=== PATIENT | male | born 1965 | race Caucasian/White ===

== ENCOUNTER 2016-07-17 03:20 | Emergency (ER) ==
[2016-07-17 03:29] VITALS: BP 147/70
[2016-07-17] MEDS ORDERED: NORFLEX IM ONE (03:45)
--- NOTE | 2016-07-17 03:51 | PROVIDER DOCUMENTATION ---
HPI-General Adult - General Chief Complaint: Generalized Pain Stated Complaint: CP-SI-BACK PAIN Time Seen by Provider: 07/17/16 03:42 Source: patient, EMS Allergies/Adverse Reactions: Patient Allergies Allergy/AdvReac Type Severity Reaction Status Date / Time tramadol Allergy Severe NAUSEA; Verified 07/17/16 03:38 HIVES cyclobenzaprine HCl * Allergy Mild HIVES: Verified 07/17/16 03:38 [From Flexeril] NAUSEA gabapentin [From Neurontin] Allergy Mild NAUSEA; Verified 07/17/16 03:38 HIVES ketorolac tromethamine * Allergy Mild HIVES, Verified 07/17/16 03:38 [From Toradol] NAUSEA meperidine HCl * Allergy Mild HIVES Verified 07/17/16 03:38 [From Demerol] - History of Present Illness -Gen Adult Nature of Presenting Problems: pt states he is out of his percocet, and his regular provider is out of town and his chronic lower back pain is bothering him more. He is requesting a refill and a shot of dilaudid Review of Systems - Adult - REVIEW OF SYSTEMS - ADULT Constitutional: denies: chills, fever Eyes: denies: discharge Ears, Nose, Mouth & Throat: denies: ear pain, sinus problem, throat pain Cardiovascular: denies: edema Respiratory: denies: cough, shortness of breath Gastrointestinal: denies: abdominal pain, nausea, vomiting Genitourinary: denies: dysuria, frequency, incontinence Musculoskeletal: reports: see HPI Integumentary: denies: rash Neurological: denies: headache/migraines, numbness, paresthesia All Other Systems: Reviewed and Negative Past History - Adult - PAST MEDICAL HISTORY-ADULT Review of Records: reports: Old Records Reviewed, Nursing Assessment Review, Medications Reviewed, Social history reviewed & non-contributory. Major Childhood Illnesses: reports: history unknown Cardiovascular: reports: HTN Respiratory: reports: denies history Gastrointestinal: reports: denies history Obstetrical/Gynecological: reports: denies history Genitourinary: reports: denies history Musculoskeletal: reports: chronic pain, intervertebral disc disease Neurological: reports: denies history Psychiatric: reports: denies history Endocrine/Immune: reports: denies history Other Conditions: reports: denies history - PRIOR SURGERIES/PROCEDURES Surgical/Procedure History: reports: none - PRIOR HOSPITALIZATIONS Prior Hospitalizations: reports: none - IMMUNIZATION STATUS Childhood Immunizations: See Nurse Assessment Flu Vaccine: See Nurse Assessment - FAMILY HISTORY Family History: reviewed, not pertinent Physical Exam-General - CONSTITUTIONAL General Appearance: appears well, alert, other (slurred speech) - EYES Eyes: pink conjunctivae. negative: scleral icterus - HEAD, EARS, NOSE, MOUTH & THROAT HENMT: normocephalic/atraumatic - NECK Neck: non-tender, full range of motion, supple, normal inspection - RESPIRATORY Respiratory: chest non-tender, lungs clear, normal breath sounds, no pleuratic chest pain, no respiratory distress, no accessory muscle use - CARDIOVASCULAR Cardiovascular: regular rate, rhythm, no edema, no murmur - GASTROINTESTINAL (ABDOMEN) Abdominal Exam: normal bowel sounds, non tender, soft, no organomegaly, no pulsatile mass - MUSCULOSKELETAL Extremity: non-tender, normal inspection, no pedal edema, no calf tenderness - SKIN Integumentary: normal color, normal turgor, warm/dry - NEUROLOGIC Neurologic: lab asst II-XII nml as tested, grossly normal, no motor/sensory deficits - PSYCHIATRIC Psych/Mental Status: normal mood/affect, normal thought content, normal thought process, oriented x 3 Progress - PLAN OF CARE/RESULTS Progress/Plan/Lab Results: Orders Category Date Time Status Orphenadrine [Norflex] Med 07/17/16 03:45 Once 60 mg IM NOW ONE Vital Signs Temp Pulse Resp BP Pulse Ox 07/17/16 03:26 98.0 F 56 L 18 147/70 99 tramadol Allergy (Severe, Verified 07/17/16 03:38) NAUSEA; HIVES cyclobenzaprine HCl * [From Flexeril] Allergy (Mild, Verified 07/17/16 03:38) HIVES: NAUSEA gabapentin [From Neurontin] Allergy (Mild, Verified 07/17/16 03:38) NAUSEA; HIVES ketorolac tromethamine * [From Toradol] Allergy (Mild, Verified 07/17/16 03:38) HIVES, NAUSEA meperidine HCl * [From Demerol] Allergy (Mild, Verified 07/17/16 03:38) HIVES Alprazolam [Xanax] 1 mg PO TID #7 tablet 06/30/16 Oxycodone HCl/Acetaminophen [Percocet 10-325 mg Tablet] 1 each PO Q4-6H PRN PRN #7 tablet 06/30/16 Atenolol [Tenormin] 50 mg PO BID #60 tablet 07/07/16 - REASSESSMENT Reassessment #1 Time Reassessed: 03:50 (reminded pt from the recent encounter that I had at [facility] that the ED does not refill controlled substance prescriptions for chronic pain syndromes) Status: unchanged Departure - Departure Time of Disposition Order: 03:49 DIAGNOSIS: Chronic low back pain Qualifiers: Back pain laterality: left Sciatica presence: with sciatica Sciatica laterality : sciatica of right side Qualified Code(s): M54.41 - Lumbago with sciatica, right side; G89.29 - Other chronic pain Disposition: HOME 01 Certified Medical Emergency: Emergent Condition: Good Additional Instructions: ED Follow Up Instructions: You have been treated by a care provider in the Emergency Department. These instructions are being provided to you so you can have an understanding of how to care for yourself upon discharge. Upon discharge from the Emergency Department, you are responsible for making arrangements for follow-up care by a physician of your choice. Take all prescribed medications as directed. Return to the Emergency Department immediately for any new or worsening symptoms. You may call the Physician Referral phone number at [phone] to obtain a list of Physicians who are taking new patients.
== END 2016-07-17 04:10 | disposition left against medical advice (07) ==
LOC: EDBD → ED 03:20
DX: M54.41 Lumbago with sciatica, right side (principal); G89.29 Other chronic pain; I10 Essential (primary) hypertension; M48.9 Spondylopathy, unspecified; R47.81 Slurred speech; Z79.899 Other long term (current) drug therapy
CPT/HCPCS: 99282; J2360

== ENCOUNTER 2016-09-15 00:28 | Emergency (ER) ==
[2016-09-15 00:50] LABS: MANUAL DIFF NEEDED? NO
[2016-09-15 00:52] LABS: BASO% 0.3 % (0.0-0.8); EOS# 0.12 X1000 (0.0-0.7); HEMATOCRIT 37.7 % (42.0-52.0); HEMOGLOBIN 13.3 g/dL (14.0-18.0); LYMPH# 2.54 X1000 (1.2-3.4); LYMPH% 43.2 % (20.5-51.1); MCH 33.7 PG (27-31); MCHC 35.3 g/dL (33-37); MCV 95.4 FL (81-99); MONO# 0.65 X1000 (0.11-0.59); MONO% 11.1 % (1.7-9.3); NEUT% 43.4 % (42.2-75.2); PLT 177 X1000 (130-400); RBC 3.95 XMIL (4.7-6.1)
[2016-09-15 01:02] LABS: INR 1.02; PROTIME 10.8 Seconds (9.2-11.7); PTT 27.5 Seconds (22.0-36.0)
[2016-09-15 01:13] LABS: ALBUMIN 4.2 g/dL (3.5-5.0); CALCIUM 9.2 mg/dL (8.8-10.2); MAGNESIUM 2.2 mg/dL (1.5-2.7); POTASSIUM 3.8 mmol/L (3.5-5.1); TOTAL BILIRUBIN 0.59 mg/dL (0.20-1.00); TOTAL PROTEIN 7.1 g/dL (6.3-8.3)
--- NOTE | 2016-09-15 02:05 | PROVIDER DOCUMENTATION ---
HPI-Respiratory General - General Source: patient - History of Present Illness-Resp Quality of Pain: reports: none Severity in ED: reports: mild Onset/Duration: reports: unsure Timing: reports: improving (pt is 100% O2 sat on room air) Cough Quality/Degree: reports: moderate, productive cough Episode Frequency: occasional episodes Associated Symptoms: reports: cough, shortness of breath, short of breath, wheezing. denies: chest pain/soreness, dizziness, earache, facial pain, fever/ chills, flu-like symptoms, headache, heart racing, hurts to breathe, hyperventilating, lightheadedness, muscle/bodyaches, nasal congestion, nasal drainage, sinus pain, sore throat, sweaty <Scott Wiseman - Last Filed: 09/15/16 03:16> <Gamal Townsend - Last Filed: 09/15/16 03:23> - General Chief Complaint: Shortness of Breath Stated Complaint: SOB Time Seen by Provider: 09/15/16 02:00 Allergies/Adverse Reactions: Patient Allergies Allergy/AdvReac Type Severity Reaction Status Date / Time tramadol Allergy Severe NAUSEA; Verified 07/17/16 03:38 HIVES cyclobenzaprine HCl * Allergy Mild HIVES: Verified 07/17/16 03:38 [From Flexeril] NAUSEA gabapentin [From Neurontin] Allergy Mild NAUSEA; Verified 07/17/16 03:38 HIVES ketorolac tromethamine * Allergy Mild HIVES, Verified 07/17/16 03:38 [From Toradol] NAUSEA meperidine HCl * Allergy Mild HIVES Verified 07/17/16 03:38 [From Demerol] morphine AdvReac Mild Unknown Verified 09/15/16 00:42 Home Medications: Home Medication List Medication Instructions Recorded Confirmed Last Taken Type Atenolol [Tenormin] 50 mg PO BID #60 tablet 07/07/16 09/15/16 09/14/16 21:00 Rx - History of Present Illness-Resp Nature of Presenting Problem: Pt is a 51 yom who presents to ER with CC of shortness of breath. Pt did not specify onset, but also complained of generalized back pain and bilateral lower extremity pain. On exam, pt was moderately lethargic and reports that he does take xanax, but not percocet. (Scott Wiseman) Review of Systems - Adult - REVIEW OF SYSTEMS - ADULT Constitutional: denies: chills, fever, fatique, night sweats, weight gain, weight loss Eyes: reports: no symptoms reported Ears, Nose, Mouth & Throat: reports: no symptoms reported Cardiovascular: denies: chest pain, edema, heart murmur, irregular heart rate, orthopnea, palpitations, poor circulation, PND, syncope Respiratory: reports: chronic cough, cough, excessive sputum production, shortness of breath, wheezing. denies: dyspnea on exertion, hemoptysis, pleurisy Gastrointestinal: reports: no symptoms reported Genitourinary: reports: no symptoms reported Musculoskeletal: reports: back pain, frequent leg cramps, muscle aches, muscle weakness. denies: bone pain, joint pain, joint swelling, neck pain Integumentary: reports: no symptoms reported Neurological: reports: no symptoms reported Psychiatric: reports: no symptoms reported Endocrine: reports: no symptoms reported Hematologic/Lymphatic: reports: no symptoms reported Allergic/Immunologic: reports: no symptoms reported All Other Systems: Reviewed and Negative <Scott Wiseman - Last Filed: 09/15/16 03:16> Past History - Adult - PAST MEDICAL HISTORY-ADULT Review of Records: reports: Nursing Assessment Review, Medications Reviewed Cardiovascular: reports: HTN Musculoskeletal: reports: chronic pain, intervertebral disc disease - IMMUNIZATION STATUS Childhood Immunizations: See Nurse Assessment Flu Vaccine: See Nurse Assessment <Scott Wiseman - Last Filed: 09/15/16 03:16> Physical Exam-General - PHYSICAL EXAM-ADULT Initial Vital Signs Reviewed: Yes - CONSTITUTIONAL General Appearance: alert, mild distress, cachetic, thin, lethargic, slow to respond, obtunded. negative: appears well, no apparent distress, moderate distress, severe distress, obese, anxious, combative - EYES Eyes: PERRL/EOMI, pink conjunctivae, fundi clear, no AV nicking, sclera injected - NECK Neck: non-tender, full range of motion, supple. negative: C-spine tenderness, limited range of motion, lymphadenopathy - RESPIRATORY Respiratory: chest non-tender, lungs clear, normal breath sounds. negative: respiratory distress, decreased breath sounds, accessory muscle use, wheezing - CARDIOVASCULAR Cardiovascular: normal peripheral pulses, bradycardia. negative: regular rate, rhythm, tachycardia, diastolic murmur, systolic murmur, irregularly irregular - GASTROINTESTINAL (ABDOMEN) Abdominal Exam: normal bowel sounds, non tender, soft. negative: abnormal bowel sounds, distended, tenderness, mass - MUSCULOSKELETAL Back Exam: no CVA tenderness, no vertebral tenderness. negative: CVA tenderness , decreased range of motion, ecchymosis, muscle spasm, swelling, vertebral tenderness Extremity: normal range of motion, non-tender, normal gait. negative: deformity , erythema, inflammation, pedal edema, slow capillary refill, swelling, tenderness - SKIN Integumentary: normal color, normal turgor, warm/dry. negative: abrasion(s), diaphoresis, ecchymosis, erythema, laceration(s), swelling, tenderness, warm - NEUROLOGIC Neurologic: grossly normal, no motor/sensory deficits. negative: facial droop, focal weakness, motor weakness, sensory deficit - PSYCHIATRIC Psych/Mental Status: normal thought content, normal thought process, oriented x 3, disheveled, depressed affect. negative: normal mood/affect, disoriented x 3 , anxious, paranoid, tearful <Scott Wiseman - Last Filed: 09/15/16 03:16> Progress - EKG 1 Time of EKG reading by physician:: 01:33 EKG Read and Signed by:: Gamal Townsend EKG Interpretation (*Must complete 3 of following elements*): Normal Rate: 50 Rhythm: Sinus bradycardia with sinus arrhythmia <Scott Wiseman - Last Filed: 09/15/16 03:16> <Gamal Townsend - Last Filed: 09/15/16 03:23> - PLAN OF CARE/RESULTS Progress/Plan/Lab Results: 0247: Pt requesting pain medicine, but is in no acute distress. Pt also reports that he does not have a ride home. Vital Signs - 24 hr 09/15/16 09/15/16 09/15/16 00:32 01:32 02:40 Temperature 98.1 F Pulse Rate 52 L 52 L 54 L Respiratory 16 12 16 Rate Blood Pressure 164/78 129/75 122/71 O2 Sat by Pulse 100 100 100 Oximetry Orders Category Date Time Status CHEST-PORTABLE [RAD] Stat Exams 09/15/16 00:45 Taken CBC WITH ELECTRONIC DIFF [HEME] Stat Lab 09/15/16 00:44 Completed CK PROFILE [SP CHEM] Stat Lab 09/15/16 00:44 Completed COMPREHENSIVE METABOLIC PANEL [CHEM] Stat Lab 09/15/16 00:44 Completed D-DIMER [CHEM] Stat Lab 09/15/16 00:44 Completed MAGNESIUM [CHEM] Stat Lab 09/15/16 00:44 Completed PRO B-NATRIURETIC PEPTIDE Stat Lab 09/15/16 00:44 Completed PROTIME WITH INR [COAG] Stat Lab 09/15/16 00:44 Completed PTT [COAG] Stat Lab 09/15/16 00:44 Completed TROPONIN T Stat Lab 09/15/16 00:44 Completed EKG [EKG] Stat Ther 09/15/16 00:32 Ordered Laboratory Tests 09/15/16 09/15/16 09/15/16 00:44 00:44 00:44 WBC RBC Hgb Hct MCV MCH MCHC RDW Std Deviation Plt Count MPV Immature Gran % (Auto) Neut % (Auto) Lymph % (Auto) Stewart % (Auto) Eos % (Auto) Baso % (Auto) Immature Gran # (Auto) Neut # (Auto) Lymph # (Auto) Stewart # (Auto) Eos # (Auto) Baso # (Auto) PT INR PTT (Actin FS) D-Dimer 0.42 Sodium 142 Potassium 3.8 Chloride 101 Carbon Dioxide 29 Anion Gap 12 BUN 12 Creatinine 1.4 H Estimated GFR/1.73 m2 53 BUN/Creatinine Ratio 9 Glucose 95 Calculated Osmolality 283 Calcium 9.2 Magnesium 2.2 Total Bilirubin 0.59 AST 22 ALT 20 Alkaline Phosphatase 59 Creatine Kinase 41 Troponin T < 0.010 Ktt-K-Vesbvruyemi Pept Total Protein 7.1 Albumin 4.2 Globulin 2.9 Albumin/Globulin Ratio 1.4 09/15/16 09/15/16 09/15/16 00:44 00:44 00:44 WBC 5.88 RBC 3.95 L Hgb 13.3 L Hct 37.7 L MCV 95.4 MCH 33.7 H MCHC 35.3 RDW Std Deviation 12.4 Plt Count 177 MPV 11.0 H Immature Gran % (Auto) 0.0 Neut % (Auto) 43.4 Lymph % (Auto) 43.2 Stewart % (Auto) 11.1 H Eos % (Auto) 2.0 Baso % (Auto) 0.3 Immature Gran # (Auto) 0.00 Neut # (Auto) 2.55 Lymph # (Auto) 2.54 Stewart # (Auto) 0.65 H Eos # (Auto) 0.12 Baso # (Auto) 0.02 PT 10.8 INR 1.02 PTT (Actin FS) 27.5 D-Dimer Sodium Potassium Chloride Carbon Dioxide Anion Gap BUN Creatinine Estimated GFR/1.73 m2 BUN/Creatinine Ratio Glucose Calculated Osmolality Calcium Magnesium Total Bilirubin AST ALT Alkaline Phosphatase Creatine Kinase Troponin T Vin-U-Cndqjoyxaqu Pept 95 Total Protein Albumin Globulin Albumin/Globulin Ratio (Scott Wiseman) Departure <Scott Wiseman - Last Filed: 09/15/16 03:16> - Departure Time of Disposition Order: 03:20 Certified Medical Emergency: Emergent <Gamal Townsend - Last Filed: 09/15/16 03:23> - Departure DIAGNOSIS: COPD (chronic obstructive pulmonary disease), Opiate abuse, episodic Disposition: HOME 01 Condition: Fair Referrals: Sal Cardona MD [Primary Care Provider] - Attestation - Scribe Verification/Attestation Scribe:: Scott Wiseman Acting as Scribe for:: Gamal Townsend Scribe documention review:: This chart was documented by a scribe and accurately reflects the service the provider performed and the decisions made by the provider. <Scott Wiseman - Last Filed: 09/15/16 03:16> Physician Attestation
[2016-09-15] MEDS ORDERED: PERCOCET-10 PO ONE (02:45)
[2016-09-15 03:22] VITALS: BP 113/49
--- NOTE | 2016-09-15 07:48 | Diag Imaging Result Document ---
PROCEDURE NAME: CHEST-PORTABLE - 09/15/2016 PORTABLE CHEST: COMPARISON: Compared to 08/19/2010. FINDINGS: The lungs are well expanded. The heart is not enlarged. The vessels are not distended. No pneumonia. No pleural effusions identified. IMPRESSION: Negative chest.
--- NOTE | 2016-09-16 05:55 | EKG Report ---
Test Performed on : 09/15/2016 00:33:18 AM Test Reason : SOB Blood Pressure : / mmHG Vent. Rate : 050 BPM Atrial Rate : 050 BPM P-R Int : 158 ms QRS Dur : 090 ms QT Int : 468 ms P-R-T Axes : 081 050 050 degrees QTc Int : 426 ms Sinus bradycardia. with sinus arrhythmia. Otherwise normal ECG When compared with ECG of 30-JUN-2016 04:26, No significant change was found Unconfirmed Result
== END 2016-09-15 03:41 | disposition home or self-care (01) ==
LOC: ED 00:28
DX: J44.9 Chronic obstructive pulmonary disease, unspecified (principal); F11.10 Opioid abuse, uncomplicated; R06.02 Shortness of breath; R06.2 Wheezing; R05 Cough; M54.9 Dorsalgia, unspecified; R25.2 Cramp and spasm; M79.1 Myalgia; M62.81 Muscle weakness (generalized); I10 Essential (primary) hypertension; G89.29 Other chronic pain; R53.83 Other fatigue; R00.1 Bradycardia, unspecified; Z79.899 Other long term (current) drug therapy
CPT/HCPCS: 71010; 80053; 82550; 83735; 83880; 84484; 85025; 85379; 85610; 85730; 93005